=== PATIENT | female | born 1975 | race Caucasian/White ===

== ENCOUNTER 2017-08-08 09:31 | Outpatient (CLI) | payer OTHER ==
[2017-08-08 09:56] LABS: BASOPHILS % 0.6 (0.0-1.5); MEAN CORPUSCULAR HEMOGLOBIN 29.8 pg (28.0-34.0); MEAN CORPUSCULAR VOLUME 88.3 fl (80.0-100.0); MONOCYTES % 4.1 % (0.0-11.0); NEUTROPHILS # 4.6 # k/uL (1.4-7.7)
[2017-08-08 10:10] LABS: eGFR (African) > 60; eGFR (Non-African) > 60
== END 2017-08-08 09:32 ==
LOC: LAB 09:31
PROVIDERS: ATTEND Family Medicine
DX: Z00.00 Encounter for general adult medical examination without abnormal findings (principal); R00.2 Palpitations
CPT/HCPCS: 36415; 80053; 80061; 84443; 85025

== ENCOUNTER 2017-08-14 09:07 | Outpatient (CLI) | payer OTHER | END 2017-08-14 09:10 | LOC: RT 09:07 | PROVIDERS: ATTEND Family Medicine | DX: R00.2 Palpitations (principal) | CPT/HCPCS: 93225 ==

== ENCOUNTER 2018-05-17 09:01 | Outpatient (CLI) | payer OTHER | END 2018-05-17 09:10 | LOC: LAB 09:01 | PROVIDERS: ATTEND Family Medicine | DX: R07.0 Pain in throat (principal) | CPT/HCPCS: 87880 ==

== ENCOUNTER 2019-06-20 08:10 | Outpatient (CLI) | payer OTHER ==
[2019-06-27 08:24] LABS: BASOPHILS % 0.5 % (0.0-1.5); NEUTROPHILS # 4.4 # k/uL (1.4-7.7)
== END 2019-06-20 08:15 ==
LOC: LAB 08:10
PROVIDERS: ATTEND Family Medicine
DX: L53.9 Erythematous condition, unspecified (principal)
CPT/HCPCS: 36415; 85025